=== PATIENT | male | born 1960 | race Caucasian/White ===

== ENCOUNTER 2018-08-16 01:59 | Inpatient (IN) ==
[2018-08-16] MEDS ORDERED: ONDANSETRON 4 MG/2 ML VIAL IVP ONE (02:18)
[2018-08-16] MEDS ORDERED: Sodium Chloride 0.9% 1,000 ML PRIMARY IV ONE (02:18)
[2018-08-16] MEDS ORDERED: HYDROmorphone 2 MG/1 ML IVP ONE ×2 (02:19→05:32)
[2018-08-16 02:28] LABS: BASOPHILS # (AUTO) 0.02 10*3/UL; BASOPHILS % (AUTO) 0.2 % (0-1); EOSINOPHILS # (AUTO) 0.21 10*3/UL; Hematocrit [HCT] 46.9 % (42.0-52.0); Hemoglobin [HGB] 15.7 g/dL (14.0-18.0); LYMPHOCYTES # (AUTO) 2.11 10*3/uL; MEAN CORPUSCULAR HGB CONC 33.5 g/dL (33-37); MEAN CORPUSCULAR VOLUME 95.7 FL (80-90); MEAN PLATELET VOLUME 10.6 FL (7.4-12.2); MONOCYTES # (AUTO) 0.77 10*3/UL (0.3-0.8); MONOCYTES % (AUTO) 7.2 % (5-15); NEUTROPHILS # (AUTO) 7.59 10*3/UL; NEUTROPHILS % (AUTO) 70.6 % (50-80)
[2018-08-16 02:30] LABS: PLATELET MORPHOLOGY COMMENT NORMAL MORPHOLOGY (NORM); RBC MORPHOLOGY COMMENT NORMAL MORPHOLOGY (NORM); WBC MORPHOLOGY COMMENT NORMAL MORPHOLOGY (NORM)
[2018-08-16 02:33] LABS: BLOOD UREA NITROGEN 15 mg/dL (7-22); BUN/CREATININE RATIO 13.63 (6-20); SERUM ALBUMIN 4.5 g/dL (3.5-4.8)
[2018-08-16 02:48] LABS: LIPASE 79 IU/L (23-300)
[2018-08-16 03:42] LABS: BILIRUBIN,URINE NEGATIVE (NEG); CLARITY,URINE CLEAR (CLEAR); COLOR,URINE YELLOW (Y); GLUCOSE, URINE (UA) NEGATIVE (NEG); OCCULT BLOOD,URINE NEGATIVE (NEG); PROTEIN,URINE NEGATIVE (NEG)
[2018-08-16 03:45] LABS: URINE SAMPLE TYPE CLEAN CATCH URINE
--- NOTE | 2018-08-16 03:57 | DI ---
EXAM: CT Abdomen and Pelvis With Intravenous Contrast CLINICAL HISTORY: Low abdominal pain and nausea TECHNIQUE: Axial computed tomography images of the abdomen and pelvis with intravenous contrast. Coronal and sagittal reformatted images were created and reviewed. CONTRAST: 60 cc Ultravist 370 COMPARISON: No relevant prior studies available. FINDINGS: Lung bases: Nonspecific bibasilar opacities likely reflect atelectasis/scarring. ABDOMEN: Liver: Mild intrahepatic biliary ductal dilatation likely within normal limits for post cholecystectomy status. Gallbladder and bile ducts: Prior cholecystectomy without common bile duct dilation. Pancreas: Unremarkable. No ductal dilatation, focal mass, or peripancreatic inflammatory stranding. Spleen: Unremarkable. No splenomegaly. Adrenals: Unremarkable. No mass. Kidneys and ureters: Small nonobstructive left intrarenal calculus and low-density renal lesions measuring up to 16 mm on the right which likely represent cysts. No hydronephrosis. Stomach and bowel: Gastric decompression limits evaluation for wall thickening/gastritis. No small bowel obstruction. Under distention limits assessment for small bowel wall thickening/enteritis. Stool present in the proximal colon with diverticulosis and increased stool more distally. No wall thickening to suggest colitis/diverticulitis. PELVIS: Appendix: Markedly enlarged fluid-filled appendix measuring up to 1.8 cm with mild surrounding stranding. No appendicolith or periappendiceal abscess. Bladder: Unremarkable. Unremarkable. Reproductive: Unremarkable as visualized. ABDOMEN and PELVIS: Intraperitoneal space: Unremarkable. No free air. No significant fluid collection. Bones/joints: Osseous demineralization, multilevel degenerative disc disease, and multilevel chronic endplate height loss. Severe spinal canal stenosis is present at L2-L3. Multilevel high-grade foraminal stenosis is also noted bilaterally. No acute fracture. No dislocation. Soft tissues: Unremarkable. Vasculature: Atherosclerosis without abdominal aortic aneurysm. Lymph nodes: Unremarkable. No enlarged lymph nodes. IMPRESSION: 1. Markedly enlarged fluid-filled appendix measuring up to 1.8 cm with mild surrounding stranding. No appendicolith or periappendiceal abscess. Findings are compatible with acute appendicitis in the appropriate clinical setting. Underlying mucocele not excluded. Surgical consultation recommended. 2. No free air or small bowel obstruction. 3. Lumbar spondylosis with severe spinal canal stenosis at L2-L3. 4. Additional incidental/chronic findings as above. <MYCVCSECTION> Critical Value Communications 08/16/18 04:02 Call Doctor Regarding Appendicitis, called Dr. Serna on 08/16 04:02 (-06:00)
[2018-08-16] MEDS ORDERED: Ertapenem Inj 1 GM in Sodium Chloride 0.9% 100 ML IV ONE (05:32)
[2018-08-16] MEDS ORDERED: Lactated Ringers 1,000 ML PRIMARY IV ONE (05:40)
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
[2018-08-16] MEDS ORDERED: BUPivacaine Inj 0.25% PF - 10ml vial ONE (06:41)
[2018-08-16] MEDS ORDERED: Sodium Chloride 0.9% vial 0 ML ONE (06:42)
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
[2018-08-16] MEDS ORDERED: PROPOFOL 10 MG/1 ML (200 MG/20 ML) VIAL IV ONE ×2 (07:20)
[2018-08-16] MEDS ORDERED: fentaNYL Inj 250 MCG/5 ML VIAL ONE (07:21)
[2018-08-16] MEDS ORDERED: ROCURONIUM 10 MG/1 ML - 5 ML VIAL IVP ONE (07:23)
[2018-08-16] MEDS ORDERED: SUCCINYLCHOLINE CHLORIDE 20 MG/1 ML - 10 ML ONE (07:23)
[2018-08-16] MEDS ORDERED: DEXAMETHASONE PF 10 MG/1 ML VIAL ONE (08:15)
[2018-08-16] MEDS ORDERED: ONDANSETRON 4 MG/2 ML VIAL ONE (08:28)
[2018-08-16] MEDS ORDERED: LIDOCAINE MPF 2% - 5 ML (20 MG/1 ML) ONE (08:28)
[2018-08-16] MEDS ORDERED: ePHEDrine Inj 50 MG/ML AMP ONE (08:29)
[2018-08-16] MEDS ORDERED: SUGAMMADEX SODIUM 200 MG/2 ML VIAL IV ONE (09:05)
[2018-08-16] MEDS ORDERED: Sodium Chloride 0.9% vial 20 ML ONE (09:14)
[2018-08-16] MEDS ORDERED: BUPivacaine Liposome/PF (Exparel) Inj 20ml vial INFIL ONE (09:14)
[2018-08-16] MEDS ORDERED: LIDOCAINE W/ SODIUM BICARB 0.5 ML SYR SUBD PRN (09:31)
[2018-08-16] MEDS ORDERED: fentaNYL Inj 100 MCG/2 ML VIAL IVP PRN (09:31)
--- NOTE | 2018-08-16 09:31 | CRNA.PROGR ---
Anesthesia Recovery Phase I - Post Anesthesia Evaluation Patient's Condition on Arrival in Phase II: Stable Pain Level: 3 (STABLE AT PT HANDOFF)
--- NOTE | 2018-08-16 09:31 | CRNA.PROGR ---
Anesthesia Time - Procedure/Recovery Time Start Date: 08/16/18 End Date: 08/16/18 Anesthesia : Time In: 07:17 Anesthesia : Time Out: 09:36 Anesthesia : Total Time: 139 - Total Anesthesia Time Total Anesthesia Time (minutes): 139 - Other Weight: 104.326 kg Height: 5 ft 11 in Body Mass Index (BMI): 32.1 Physical Status: P3 Anesthesia Type: General Anesthesia : ET (STABLE AT PT HANDOFF PACU)
[2018-08-16] MEDS ORDERED: HYDROmorphone 2 MG/1 ML ONE (09:32)
[2018-08-16] MEDS: HYDROmorphone 2 MG/1 ML IVP PRN ×3 (09:34→10:22)
--- NOTE | 2018-08-16 09:45 | GEN.OPNOTE ---
Operative Note Surgery Date: 08/16/18 Preoperative Diagnosis: Acute appendicitis Postoperative Diagnosis: Acute appendicitis. Mass of the orifice of the appendix Procedure: Partial right hemicolectomy Surgeon: Kwan Donald MD Patient Ambassador: Peter Luna MD Anesthesia Provider: Alvaro Antunez MD Anesthesia Type: General Estimated Blood Loss (mL): 40 Fluids: Please see anesthesia notes in EMR patient did receive lactated Ringer's. He had 1 g of Invanz in the emergency department Pathology: Right colon Indications: Patient has what appears be acute appendicitis. CT scan shows appendix is 1.8 cm. There is Q Jonathan inflammatory condition around the appendix. Findings: Patient markedly dilated appendix with obvious evidence acute appendicitis. When placing the stapler across the base of the appendix the colon ruptured at revealing a mass in the cecum Operative Summary: Patient is brought in the operating room. Placed supine position. Given general trach anesthesia. Prepped draped sterile fashion. Timeout performed per protocols. Made a small incision below the umbilicus. I then place him for his needle. Pneumoperitoneum obtained. A 5 mm trocar was placed using the Visiport. After in the camera in position. Placed 5 mm suprapubic under direct visualization. We then found the patient had little bit of purulent material in the right gutter. Patient had a redundant flap sigmoid colon. The base of the cecum was identified along with appendix. Patient a markedly dilated appendix with some inflammatory condition around it. I then placed a 10 mm trocar in the left lower quadrant under direct visualization I used the gyrus to dissect of the mesial appendix. The inflammation of the appendix and right to the base of the cecum. We initially tried these a 5 mm endostapler but we could not get this from the base of the cecum. We then place another 11 mm trocar under direct physician to the incision for the 10 mm trocar. I then used a I laparoscopic LEYLA stapler placed across the base the cecum. When placed in this the bowel actually ruptured revealing a tumor. Therefore I then abandoned the laparoscopic procedure and removed all trochars except the stapler which a left on the bowel. I then Converted to an open procedure. I made a right lower quadrant incision at the level of the umbilicus. He was to stay and left cautery dissection to the subcutaneous tissue electrocautery. Place an Jared retractor in. This gave exposure. I then mobilized the right colon from its retroperitoneal attachments. The patient did have a tumor at the base of the appendix. I removed the stapler and brought it and then remove the [address] of young clamp across the opening of the cecum to prevent contamination. I then made a small window in the mesentery of the terminal ileum. I fired the TLC 75 stapler dividing the small bowel. I then went up to and above the right colic artery and fired the stapler crossed the descending colon. I think clamped divided the mesentery and tied with 0 Vicryl sutures. I then opened up the antimesenteric border both small bowel and ascending colon. Placed the TLC 75 stapler in creating an anastomosis. The completed anastomosis by firing the TXA 90 stapler across the open ends. Thus closing the anastomosis. Palpation revealed a wide-open anastomosis. There is good bleeding noted at the staple line. There is some couple points to be cauterized the bowel mucosa. We inspected there is no active bleeding. I then irrigated to clear. There is been no active bleeding anatomy identified. No further purulent Fluid in the abdominal cavity. Retractors removed. At this point initial count was accurate. Closed the incision in layers closing the posterior sheath with 0 PDS. The anterior was closed with 0 PDS both were continuous running sutures. Closed the skin with skin yessenia. The remainder the trocar sites had small fascial defect so they were not closed. Likewise the skin was closed with yessenia. Again counts were correct. Patient transferred recovery room in stable condition Patient Problems - Patient Problem List (1) Acute appendicitis Current Visit: Yes Status: Acute Code(s): K35.80 - Unspecified acute appendicitis Category: Medical Procedure Codes - Surgical Procedures Primary Surgical Procedure: Other CPT Code(s) (Right hemicolectomy with removal Justice terminal ileum and ileocolostomy CPT code 95602)
[2018-08-16] MEDS ORDERED: NALOXONE 0.4 MG/1 ML VIAL IVP PRN (10:39)
[2018-08-16] MEDS ORDERED: MORPHINE SULFATE/PF PCA 30 MG/30 ML IV SCH (10:39)
[2018-08-16] MEDS ORDERED: Keys-Morphine PCA PRN (10:39)
[2018-08-16] MEDS: KETOROLAC 15 MG/1 ML VIAL IVP PRN ×2 (12:24→20:09)
[2018-08-16] MEDS: D5-1/2NS + 20mEq KCL 1,000 ML PRIMARY IV SCH (12:25)
[2018-08-16] MEDS: NICOTINE 21 MG /DAY PATCH TRANSDERM SCH (15:23)
[2018-08-16] MEDS: Acetaminophen 1000mg Inj 1,000 MG/100 ML VIAL IV PRN ×2 (15:24→22:14)
--- NOTE | 2018-08-16 16:39 | EKG ---
[address] [address] Measurements Intervals [place] Rate: 86 P: 48 OR: 140 QRS: -44 QRSD: 108 T: 50 QT: 370 QTc: 414 Interpretive Statements SINUS RHYTHM MARKED LEFT AXIS DEVIATION [QRS AXIS < -30] SEPTAL MYOCARDIAL INFARCTION OF INDETERMINATE AGE No previous ECG available for comparison Electronically Signed On 08-17-18 10:36:29 MDT by Farshad Murray [email or web address]
[2018-08-16] MEDS: ONDANSETRON 4 MG/2 ML VIAL IVP PRN (19:12)
[2018-08-16] MEDS: FAMOTIDINE 20 MG/2 ML VIAL IVP SCH (20:09)
[2018-08-17] MEDS: D5-1/2NS + 20mEq KCL 1,000 ML PRIMARY IV SCH ×2 (00:41→16:34)
[2018-08-17 05:22] LABS: BASOPHILS # (AUTO) 0.01 10*3/UL; BASOPHILS % (AUTO) 0.1 % (0-1); EOSINOPHILS # (AUTO) 0 10*3/UL; EOSINOPHILS % (AUTO) 0 % (0-8); Hematocrit [HCT] 37.7 % (42.0-52.0); Hemoglobin [HGB] 12.4 g/dL (14.0-18.0); LYMPHOCYTES # (AUTO) 1.39 10*3/uL; MEAN CORPUSCULAR HEMOGLOBIN 32.4 PG (27-31); MEAN CORPUSCULAR HGB CONC 32.9 g/dL (33-37); MEAN CORPUSCULAR VOLUME 98.4 FL (80-90); MEAN PLATELET VOLUME 11.2 FL (7.4-12.2); MONOCYTES # (AUTO) 0.87 10*3/UL (0.3-0.8); MONOCYTES % (AUTO) 6.2 % (5-15); NEUTROPHILS # (AUTO) 11.72 10*3/UL; NEUTROPHILS % (AUTO) 83.5 % (50-80); RED BLOOD COUNT 3.83 10^6/uL (4.70-6.10)
[2018-08-17 05:33] LABS: BLOOD UREA NITROGEN 19 mg/dL (7-22)
[2018-08-17] MEDS ORDERED: Ertapenem Inj 1 GM in Sodium Chloride 0.9% 100 ML IV SCH (06:00)
[2018-08-17 06:10] LABS: PLATELET MORPHOLOGY COMMENT NORMAL MORPHOLOGY (NORM); RBC MORPHOLOGY COMMENT NORMAL MORPHOLOGY (NORM); WBC MORPHOLOGY COMMENT NORMAL MORPHOLOGY (NORM)
[2018-08-17] MEDS: KETOROLAC 15 MG/1 ML VIAL IVP PRN ×2 (07:44→16:33)
[2018-08-17] MEDS: FAMOTIDINE 20 MG/2 ML VIAL IVP SCH (08:40)
[2018-08-17] MEDS: LISINOPRIL 5 MG TABLET PO SCH (10:03)
[2018-08-17] MEDS ORDERED: HYDROcodone-APAP 7.5 MG-325 MG TABLET PO PRN (10:22)
--- NOTE | 2018-08-17 10:28 | PDOC(PROG) ---
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 Centuries pass gas but says is almost there. He's having no pain at this time. Objective : Data - Labs CBC and BMP: 08/17/18 04:10 08/17/18 04:10 - Vital Signs Vital Signs and I&O: Vital Signs - Last Taken Temperature 96.9 F 08/17/18 07:09 Pulse Rate 74 08/17/18 07:09 Respiratory Rate 18 08/17/18 09:00 Blood Pressure 97/65 08/17/18 07:09 Pulse Ox 95 08/17/18 09:00 Intake and Output (24hr x 4 totals) 08/15/18 08/16/18 08/17/18 08/18/18 05:59 05:59 05:59 05:59 Intake Total 1000 / 1000 4571 / 4571 Output Total 875 / 875 400 / 400 Balance 1000 / 1000 3696 / 3696 -400 / -400 Objective : Exam - General General Appearance: No Acute Distress, Cooperative - GI/Abdominal GI/Abdominal Exam: Non Tender, Non Distended, Soft Assessment and Plan - Patient Problems (1) Acute appendicitis Current Visit: Yes Status: Acute Code(s): K35.80 - Unspecified acute appendicitis - Assessment / Plan Additional Assessment/Plan Details: Patient overall is doing very well. He'll give today's dose of his Invanz. And stop it. Advance his diet. Switch from oral pain medicine.
[2018-08-17] MEDS: ONDANSETRON 4 MG/2 ML VIAL IVP PRN ×2 (14:00→19:33)
[2018-08-17] MEDS: NICOTINE 21 MG /DAY PATCH TRANSDERM SCH (14:00)
[2018-08-17] MEDS ORDERED: ACETAMINOPHEN 500 MG TABLET PO PRN (15:39)
[2018-08-17] MEDS ORDERED: MORPHINE SULFATE 2 MG/1 ML IVP PRN (19:04)
[2018-08-17] MEDS ORDERED: MORPHINE SULFATE 2 MG/1 ML ONE (19:31)
[2018-08-17] MEDS: oxyCODONE IR Tab 5 MG TAB PO PRN (22:13)
[2018-08-18] MEDS: oxyCODONE IR Tab 5 MG TAB PO PRN (05:06)
[2018-08-18 07:04] VITALS: TEMP 97.5
[2018-08-18] MEDS: LISINOPRIL 5 MG TABLET PO SCH (08:54)
[2018-08-18 11:27] VITALS: BP 114/73; RESP 17; O2SAT 93
--- NOTE | 2018-08-18 11:32 | DCSUMMARY ---
Discharge Summary Admit Date: 08/18/18 Discharge Date: 08/18/18 Admitting Diagnosis: acute appendicitis Discharge Diagnosis: Acute appendicitis. Mass within the cecum Primary Surgery and Date: 08/16/2017 patient underwent right hemicolectomy with primary anastomosis Hospital Course: Patient is admitted the surgeon 08/16/2018 with acute appendicitis. The time is laparoscopic surgery is felt that he had a mass within the cecum. His complete return open and underwent a right hemicolectomy. Tissue postoperatively did very well. 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 He is tolerating diet. Second postoperative day was asked him flatus. Abdomen was soft nontender. He wanted to go home. I feel is safe for him to be discharged home. He'll follow up in 10 days. Exam - Vitals Vital Signs: Vital Signs Temperature 97.5 F Temperature Source Temporal Artery Scan Pulse Rate [Apical] 80 Pulse Rate [Pulse Oximeter] 67 Pulse Rate [left finger] 63 Pulse Rate 55 Respiratory Rate 17 Blood Pressure [Left Arm] 114/73 Blood Pressure [Right Arm] 105/61 Blood Pressure 126/76 Pulse Ox [left finger] 91 Pulse Ox 93 Oxygen Flow Rate [left finger] 1 Oxygen Flow Rate 1 Oxygen Delivery Method [left Room Air finger] Oxygen Delivery Method Room Air Height 5 ft 11 in Weight 235 lb 14.4 oz - General General Appearance: No Acute Distress - Neck Neck Exam: Full ROM - Respiratory Respiratory Exam: POSITIVE: Clear to Auscultation - Bilaterally - Cardiovascular Cardiovascular Exam: POSITIVE: RRR - GI/Abdominal GI/Abdominal Exam: POSITIVE: Normal Bowel Sounds, Non Tender, Non Distended, Soft Patient Problems - Patient Problem List (1) Acute appendicitis Current Visit: Yes Status: Acute Code(s): K35.80 - Unspecified acute appendicitis Category: Medical
== END 2018-08-18 13:15 | disposition home or self-care (01) | DRG 330 ==
LOC: ER 01:59 → OR 06:44 → MED/SURG 10:05
PROVIDERS: ADMIT Surgery; ATTEND Surgery